=== PATIENT | male | born 1995 | race Caucasian/White ===

== ENCOUNTER 2017-03-28 02:07 | Emergency (ER) | payer SELFPAY ==
[2017-03-28 02:12] VITALS: BMI 20.4
[2017-03-28] MEDS ORDERED: Lidocaine 1% Inj (20ml) IJ STA (02:30)
[2017-03-28 02:34] LABS: BASO # 0.02 K/mm3 (0.0-2.0); BASO % 0.1 % (0.0-3.0); EOS # 0.3 (0.0-0.7); EOS % 1.9 % (1.5-5.0); GRAN # 9.02 (1.4-6.5); GRAN % 67.5 % (50.0-68.0); HEMATOCRIT 46.7 % (42.0-52.0); LYMPH # 3.4 (1.2-3.4); MEAN CELL VOLUME 88.3 fl (80.0-105.0); MEAN CORPUSCULAR HEMOGLOBIN 30.8 pg (25.0-35.0); MEAN CORPUSCULAR HGB CONC 34.9 g/dl (31.0-37.0); MEAN PLATELET VOLUME 10.3 fl (7.0-11.0); MONO # 0.7 (0.1-0.6); MONO % 5.5 % (1.0-6.0); RED CELL DISTRIBUTION WIDTH 13.6 % (11.5-14.5); WHITE BLOOD COUNT 13.4 10^3/ul (4.5-11.0)
--- NOTE | 2017-03-28 02:42 | ED PDOC ---
Arrival/HPI - General Chief Complaint: Seizure Time Seen by Provider: 03/28/17 02:12 Historian: Patient, Other (Friends) - History of Present Illness Narrative History of Present Illness (Text): 03/28/17 02:34 A 21 year old male with no significant past medical history, presents to the emergency department s/p 3 seizure episodes. The patient's friends state that they were all at home sitting, when all of a sudden the patient stated that he felt lightheaded and got up to make himself food. The patient's friends state that they heard a loud noise from the kitchen and when they went to check on the patient, his whole body was shaking, eyes rolled back on the ground. They state that when the first episode ended they tried to pick him up, and once again he began to experience the seizure like activity. The witnesses state that the patient had 3 seizure in about 5 minutes. The patient states that he remembers when he got up to make himself food and began to feel lightheaded and when one of his friends tried to pick him up. He notes that he does not have a history of seizure nor does anyone in his family. He also notes that he obtained a laceration to the lower and back areas of the right ear. The patient currently denies fevers, chills, headache, chest pain, shortness of breath, dyspnea on exertion, cough, abdominal pain, nausea, vomiting, diarrhea, back pain, neck pain, urinary/bowel incontinence, drug/alcohol use, or any other complaint. Time/Duration: Prior to Arrival Symptom Onset: Sudden Symptom Course: Improving Activities at Onset: Rest Context: Home Past Medical History - Provider Review Nursing Documentation Reviewed: Yes - Psychiatric Hx Substance Use: No - Anesthesia Hx Anesthesia: No Family/Social History - Physician Review Nursing Documentation Reviewed: Yes Family/Social History: Other (No seizure history.) Smoking Status: Never Smoked Hx Alcohol Use: No Hx Substance Use: No Allergies/Home Meds Allergies/Adverse Reactions: Allergies No Known Allergies Allergy (Verified 03/28/17 02:13) Review of Systems - Review of Systems Constitutional: absent: Fevers Respiratory: absent: SOB Cardiovascular: absent: Chest Pain Gastrointestinal: absent: Abdominal Pain, Diarrhea, Nausea, Vomiting Neurological: Seizure. absent: Headache Physical Exam Vital Signs Reviewed: Yes Vital Signs Temp Pulse Resp BP Pulse Ox 03/28/17 05:18 98.1 F 89 17 105/78 98 03/28/17 04:42 91 H 17 101/56 L 98 03/28/17 02:56 98.1 F 89 17 158/97 H 100 Appearance: Positive for: Well-Appearing, Non-Toxic, Comfortable Pain Distress: None Mental Status: Positive for: Alert and Oriented X 3 - Systems Exam Extroacular Muscles: Present: EOMI Ears: Present: Other (Right ear laceration extends 3cm through the lower helix and antitragus. A 2cm laceration behind the ear. ) Mouth: Present: Moist Mucous Membranes Respiratory/Chest: Present: Clear to Auscultation, Good Air Exchange, Accessory Muscle Use. No: Respiratory Distress Cardiovascular: Present: Regular Rate and Rhythm Abdomen: No: Tenderness, Distention Upper Extremity: Present: NORMAL PULSES Lower Extremity: Present: NORMAL PULSES Neurological: Present: GCS=15, CN II-XII Intact, Motor Func Grossly Intact, Normal Sensory Function, Other (No focal deficits) Skin: Present: Warm, Dry Psychiatric: Present: Alert, Oriented x 3 Medical Decision Making ED Course and Treatment: Progress Notes: EKG: Ordered, reviewed, and independently interpreted the EKG. Rate : 89 BPM Rhythm : NSR Interpretation : Incomplete RBBB. 03/28/17 03:06: PROCEDURE: LACERATION REPAIR Performed by the emergency provider Location: Right ear (lower portion and behind ear) Length: Lower portion-3cm ; Behind ear- 2cm Description: Clean wound edges. No foreign bodies. Distal CMS: Normal. No deficits. Neurovascularly intact. Anesthesia: Lidocaine 1% Preparation: The wound was cleaned with NS and [place]. The area was prepped and draped in the usual sterile fashion. Exploration: The wound was explored and no foreign bodies were found. Procedure: The wound on the lower portion of the ear was closed with 13 simple interrupted 5-0 prolene. Cartilage was repaired with absorbable sutures. The wound behind the ear was closed with 3 simple interrupted 5-0 prolene. Post-Procedure: Good closure and hemostasis. The patient tolerated the procedure well and there were no complications. CSM remains intact. Post procedure dressing applied. CT Head Without Intravenous Contrast Dictated and Authenticated by: Smita Velázquez MD 03/28/2017 3:09 AM Eastern Time ([place] & [place]) IMPRESSION: 1. There is minimal periventricular white matter hypodensity which is more than what is expected for patient's young age are nonspecific and nonacute findings. The differential considerations would include demyelination versus chronic small vessel ischemic change. Correlation with patient's clinical history is recommended. 2. No evidence of an acute intracranial hemorrhage, midline shift or mass effect is identified. 03/28/17 04:55: I recommended admission for further workup. However, the patient does not wish to stay. I disc reasoning for admission as well as risks of leaving. The patient is clinically sober, free from distracting injury, appears to have intact insight and judgment and reason and in my opinion has the capacity to make decisions. Discussed importance of close follow-up for further evaluation of seizure as well as wound care. Compression dressing was placed on the ear to prevent hematoma formation. - Lab Interpretations Lab Results: 03/28/17 02:15 03/28/17 02:15 Lab Results 03/28/17 04:50: Urine Opiates Screen Negative, Urine Methadone Screen Negative, Ur Barbiturates Screen Negative, Ur Phencyclidine Scrn Negative, Ur Amphetamines Screen Negative, U Benzodiazepines Scrn Negative, U Oth Cocaine Metabols Negative, U Cannabinoids Screen Positive H 03/28/17 04:50: Urine Color Yellow, Urine Appearance Sl cloudy, Urine pH 6.0, Ur Specific [place] 1.025, Urine Protein 100 H, Urine Glucose (UA) Negative, Urine Ketones Negative, Urine Blood Negative, Urine Nitrate Negative, Urine Bilirubin Negative, Urine Urobilinogen 0.2, Ur Leukocyte Esterase Negative, Urine RBC Negative, Urine WBC 0 - 2, Ur Epithelial Cells None 03/28/17 02:15: pO2 42, VBG pH 7.31 L, VBG pCO2 55.0, VBG HCO3 27.7, VBG Total CO2 29.4 H, VBG O2 Sat (Calc) 81.8 H, VBG Base Excess 0.4, VBG Potassium 3.8, Sodium 136.0, Chloride 100.0, Glucose 157 H, Lactate 2.0, FiO2 21.0, Venous Blood Potassium 3.8 03/28/17 02:15: Alcohol, Quantitative < 10 03/28/17 02:15: Sodium 137, Chloride 101, Potassium 4.0, Carbon Dioxide 25, Anion Gap 15, BUN 16, Creatinine 0.9, Est GFR ( Amer) > 60, Est GFR (Non- Af Amer) > 60, Random Glucose 153 H, Calcium 9.2, Total Bilirubin 0.4, AST 34, ALT 69 H, Alkaline Phosphatase 99, Total Creatine Kinase 139, Total Protein 8.0 , Albumin 4.2, Globulin 3.8, Albumin/Globulin Ratio 1.1 03/28/17 02:15: WBC 13.4 H, RBC 5.29, Hgb 16.3, Hct 46.7, MCV 88.3, MCH 30.8, MCHC 34.9, RDW 13.6, Plt Count 242, MPV 10.3, Gran % 67.5, Lymph % (Auto) 25.0, Elliott % (Auto) 5.5, Eos % (Auto) 1.9, Baso % (Auto) 0.1, Gran # 9.02 H, Lymph # 3.4, Elliott # 0.7 H, Eos # 0.3, Baso # 0.02 I have reviewed the lab results: Yes - RAD Interpretation Radiology Orders: 03/28/17 02:20 HEAD W/O CONTRAST [CT] Stat 03/28/17 02:21 CHEST PORTABLE [RAD] Stat - EKG Interpretation Interpreted by ED Physician: Yes Type: 12 lead EKG - Medication Orders Current Medication Orders: Discontinued Medications Lidocaine HCl (Lidocaine 1% (20ml)) 20 ml IJ STAT STA Stop: 03/28/17 02:31 Last Admin: 03/28/17 02:53 Dose: - Scribe Statement The provider has reviewed the documentation as recorded by the Bernie Bal Provider Bernie Attestation: All medical record entries made by the Bernie were at my direction and personally dictated by me. I have reviewed the chart and agree that the record accurately reflects my personal performance of the history, physical exam, medical decision making, and the department course for this patient. I have also personally directed, reviewed, and agree with the discharge instructions and disposition. Disposition/Present on Arrival - Present on Arrival Any Indicators Present on Arrival: No History of DVT/PE: No History of Uncontrolled Diabetes: No Urinary Catheter: No History of Decub. Ulcer: No History Surgical Site Infection Following: None - Disposition Have Diagnosis and Disposition been Completed?: Yes Diagnosis: New onset seizure, Laceration of ear Disposition: HOME/ ROUTINE Disposition Time: 05:18 Condition: STABLE Discharge Instructions (ExitCare): Care For Your Stitches (ED), New-Onset Seizure in Adults (ED) Additional Instructions: Leave the bandage on and keep the wound dry and keep the pressure dressing in place for 12 to 24 hours. At that time you may remove the bandage and wash the wound gently with soap and water only twice daily. You can apply a thin layer of vaseline or antibiotic ointment to keep the wound moist. You should see your doctor or return to the ER to have your sutures removed in about 5 to 7 days. Return to the ER immediately for any signs of infection: fever, redness, swelling, pain, drainage, or for any other concerns. Prescriptions: Cephalexin [Keflex] 500 mg PO BID #6 capsule Referrals: [facility] at [facility] [place] [Outside] - Follow up with primary Forms: [employer] ([place])
[2017-03-28 02:47] LABS: ALB/GLOB RATIO 1.1 (1.1-1.8); ALKALINE PHOSPHATASE 99 U/L (38-126); ALT/SGPT 69 U/L (7-56); AST/SGOT 34 U/L (17-59); BILIRUBIN,TOTAL 0.4 mg/dL (0.2-1.3); BLOOD UREA NITROGEN 16 mg/dL (7-21); CALCIUM 9.2 mg/dL (8.4-10.5); CARBON DIOXIDE 25 mmol/L (21-33); CHLORIDE 101 mmol/L (98-107); GFR AFRICAN-AMERICAN > 60; GLUCOSE,RANDOM 153 mg/dL (70-110); SODIUM 137 mmol/L (132-148)
[2017-03-28 02:57] VITALS: RESP 17; TEMP 98.1
--- NOTE | 2017-03-28 03:09 | CT ---
EXAM: CT Head Without Intravenous Contrast CLINICAL HISTORY: 21 years old, male; Signs and symptoms; Dizziness; Additional info: Seizure head trauma TECHNIQUE: Axial computed tomography images of the head/brain without intravenous contrast. All CT scans at this facility use one or more dose reduction techniques, viz.: automated exposure control; ma/kV adjustment per patient size (including targeted exams where dose is matched to indication; i.e. head); or iterative reconstruction technique. 163 images are submitted. COMPARISON: No relevant prior studies available. FINDINGS: Brain: There is minimal periventricular white matter hypodensity which is more than what is expected for patient's young age are nonspecific findings. Correlation with patient's clinical history is recommended. No hemorrhage. Ventricles: Unremarkable. No ventriculomegaly. Bones/joints: Unremarkable. No acute fracture. Soft tissues: Unremarkable. Sinuses: Unremarkable. No acute sinusitis. Mastoid air cells: Unremarkable. No mastoid effusion. IMPRESSION: 1. There is minimal periventricular white matter hypodensity which is more than what is expected for patient's young age are nonspecific and nonacute findings. The differential considerations would include demyelination versus chronic small vessel ischemic change. Correlation with patient's clinical history is recommended. 2. No evidence of an acute intracranial hemorrhage, midline shift or mass effect is identified.
[2017-03-28 03:15] LABS: VENOUS BLOOD GAS BASE EXCESS 0.4 mmol/L (0.0-2.0); VENOUS BLOOD PH 7.31 (7.32-7.43)
[2017-03-28 04:42] VITALS: O2SAT 98
[2017-03-28 04:59] LABS: URINE BILIRUBIN NEGATIVE (NEGATIVE); URINE BLOOD NEGATIVE (NEGATIVE); URINE GLUCOSE (UA) NEGATIVE (NEGATIVE); URINE KETONE NEGATIVE (NEGATIVE); URINE LEUKOCYTE ESTERASE NEGATIVE Leu/uL (NEGATIVE); URINE PROTEIN 100 mg/dL (<30 mg/dL); URINE UROBILINOGEN 0.2 E.U./dL (<1 E.U./dL)
[2017-03-28 05:04] LABS: URINE APPEARANCE SL CLOUDY (CLEAR); URINE COLOR YELLOW (YELLOW)
[2017-03-28 05:20] VITALS: BP 105/78; PULSE 89
[2017-03-28 05:22] LABS: URINE RBC NEGATIVE /hpf (0-2); URINE WBC 0 - 2 /hpf (0-6)
--- NOTE | 2017-03-28 10:38 | RAD ---
HISTORY: seizure COMPARISON: No prior. FINDINGS: LUNGS: No active pulmonary disease. PLEURA: No significant pleural effusion identified, no pneumothorax apparent. CARDIOVASCULAR: Normal. OSSEOUS STRUCTURES: No significant abnormalities. VISUALIZED UPPER ABDOMEN: Normal. OTHER FINDINGS: None. IMPRESSION: No active disease.
--- NOTE | 2017-03-28 15:09 | CARD ---
APPROVED REPORT EKG Measurement Heart [id number] <Conclusion> Normal sinus rhythm Incomplete right bundle branch block Borderline ECG
== END 2017-03-28 05:20 | disposition home or self-care (01) ==
LOC: ED 02:07
DX: R56.9 Unspecified convulsions (principal); S01.311A Laceration without foreign body of right ear, initial encounter; W18.39XA Other fall on same level, initial encounter; Y92.000 Kitchen of unspecified non-institutional (private) residence as the place of occurrence of the external cause
CPT/HCPCS: 12013; 70450; 71010; 80053; 81001; 82550; 82803; 85025; 93005; 99285; G0480